=== PATIENT | female | born 1940 | race Caucasian/White ===

== ENCOUNTER 2021-04-22 16:25 | Emergency (ER) | payer OTHER ==
[~2021-04-22] VITALS: Ht 154.9 cm; Wt 66.7 kg
[~2021-04-22 16:25] MED LIST: AMBIEN5 MG; COZAAR50 MG; SYNTHROID75 MCG
[2021-04-22] MEDS ORDERED: AMLODIPINE-BEN1 EAC2 PO (16:33)
[2021-04-22] MEDS ORDERED: LEVOTHYROXINE88 MCG PO (16:33)
== END 2021-04-22 20:20 | disposition home or self-care (01) ==
LOC: ER 16:25
DX: J32.9 Chronic sinusitis, unspecified (principal); R04.0 Epistaxis; N39.0 Urinary tract infection, site not specified; Z86.79 Personal history of other diseases of the circulatory system